=== PATIENT | female | born 1980 | race Two or more races ===

== ENCOUNTER 2020-09-18 19:42 | Emergency (ER) | payer OTHER ==
[~2020-09-18] VITALS: Ht 170.2 cm; Wt 90.7 kg
[2020-09-18 20:02] VITALS: BP 132/88
[2020-09-18] MEDS ORDERED: LIDOCAINE 1%-EPI 1:100,000 20 ML VIAL ONE (20:58)
[2020-09-18] MEDS ORDERED: SULF1TAB48 PO (21:31)
[2020-09-18] MEDS ORDERED: ACET-2605 PO (21:31)
[2020-09-18] MEDS ORDERED: CEPH500T PO (21:31)
[2020-09-18] MEDS ORDERED: CEPHALEXIN MONOHYDRATE 500 MG CAPSULE PO ONE (21:35)
[2020-09-18] MEDS ORDERED: ACETAMINOPHEN ES 500 MG TABLET ONE (21:35)
[2020-09-18] MEDS ORDERED: SULFAMETH/TRIMETH 800/160 MG 1 UDTAB TABLET ONE (21:35)
[2020-09-18] MEDS: SULFAMETH/TRIMETH 800/160 MG 1 UDTAB TABLET PO ONE (21:43)
[2020-09-18] MEDS: CEPHALEXIN MONOHYDRATE 500 MG CAPSULE PO ONE (21:43)
[2020-09-18] MEDS: ACETAMINOPHEN ES 500 MG TABLET PO ONE (21:43)
== END 2020-09-18 23:01 | disposition home or self-care (01) ==
LOC: ER 19:47
DX: L02.212 Cutaneous abscess of back [any part, except buttock and flank] (principal)
CPT/HCPCS: 10060; 99284; A6407; J3490